=== PATIENT | male | born 2000 | race Hispanic/Latino ===

== ENCOUNTER 2025-07-13 02:47 | Observation (INO) | payer OTHER ==
[~2025-07-13] VITALS: Ht 172.7 cm; Wt 77.1 kg
[2025-07-13] VITALS (11 sets, daily range): BP systolic 100–120; BP diastolic 59–74; PULSE 59–80; RESP 16–20; TEMP 98.4–99.1; O2SAT 95–100
[2025-07-13 03:09] LABS: BASOPHILS % 0.7 % (0.0-1.0); EOSINOPHILS % 3.2 % (0.0-6.0); LYMPHOCYTES % 13.1 % (18.0-39.1); MONOCYTES % 6.6 % (4.4-11.3); NEUTROPHILS % 76.2 % (38.7-80.0); RED CELL DISTRIBUTION WIDTH 11.8 % (11.7-14.4)
[2025-07-13] MEDS: ONDANSETRON HCL INJ 2MG/ML 2ML 2 MG/ML VIAL IV STA ×2 (03:16→04:09)
[2025-07-13] MEDS: MAGNESIUM/ALUMINUM/SIMETHICONE 30 ML UDC PO STA (03:16)
[2025-07-13] MEDS: LIDOCAINE VISC 2% SOLN 15 ML UDC PO STA (03:17)
[2025-07-13] MEDS: BELLADONNA ALK/PHENOBARBITAL 5 ML UDC PO ONE (03:17)
[2025-07-13 03:34] LABS: EST GLOMERULAR FILTRATION RATE 115.0 ML/MIN (>=60)
[2025-07-13] MEDS ORDERED: Morphine 4mg INJECTION 4 MG/ML INJ IV PRN (04:00)
[2025-07-13] MEDS ORDERED: ONDANSETRON HCL INJ 2MG/ML 2ML 2 MG/ML VIAL IV PRN ×2 (04:00→15:45)
[2025-07-13] MEDS: SODIUM CHLORIDE 0.9% 1000ML 1,000 ML IV SCH (04:04)
[2025-07-13] MEDS: Morphine 4mg INJECTION 4 MG/ML INJ IV STA (04:09)
[2025-07-13] MEDS ORDERED: IOPAMIDOL 370 MG/ML 100 ML INFUS..BTL INJ ONE (05:45)
[2025-07-13] MEDS ORDERED: FENTANYL CITRATE/PF 100MCG/2 ML INJ ONE (10:43)
[2025-07-13] MEDS ORDERED: ROCURONIUM BROMIDE 1 ML IV ONE (10:43)
[2025-07-13] MEDS ORDERED: LIDOCAINE HCL 2% LOCAL INJ 5 ML SDV VIAL INJ ONE (10:43)
[2025-07-13] MEDS ORDERED: PROPOFOL IV EMULSION 10 MG/ML 20 ML VIAL ONE (10:44)
[2025-07-13] MEDS ORDERED: SUCCINYLCHOLINE CHLORIDE 20 MG/ML 10ML VIAL ONE ×2 (14:22→14:32)
[2025-07-13] MEDS ORDERED: MIDAZOLAM HCL 2 MG/2 ML VIAL ONE (14:30)
[2025-07-13] MEDS ORDERED: Morphine 10mg syringe 10 MG/ML INJ ONE (14:37)
[2025-07-13] MEDS ORDERED: ONDANSETRON HCL INJ 2MG/ML 2ML 2 MG/ML VIAL ONE (14:53)
[2025-07-13] MEDS ORDERED: DEXAMETHASONE SOD PHOS INJ 4 MG/ML SDV ONE (14:53)
[2025-07-13] MEDS ORDERED: METOCLOPRAMIDE HCL 10 MG/2ML VIAL ONE (14:53)
[2025-07-13] MEDS ORDERED: KETOROLAC TROMETHAMINE 30 MG/ML VIAL ONE (14:53)
[2025-07-13] MEDS ORDERED: SUGAMMADEX SODIUM 200 MG/2 ML VIAL IV ONE (14:57)
[2025-07-13] MEDS ORDERED: KETOROLAC TROMETHAMINE 30 MG/ML VIAL IV PRN (15:45)
[2025-07-13] MEDS ORDERED: HYDROCODONE/APAP 7.5MG-325MG 1 EA TAB PO PRN (15:45)
[2025-07-13] MEDS ORDERED: NO HOME MEDS (19:53)
[2025-07-14 05:08] LABS: BASOPHILS % 0.5 % (0.0-1.0); EOSINOPHILS % 0.8 % (0.0-6.0); LYMPHOCYTES % 15.1 % (18.0-39.1); MONOCYTES % 7.3 % (4.4-11.3); NEUTROPHILS % 76.0 % (38.7-80.0); RED CELL DISTRIBUTION WIDTH 11.9 % (11.7-14.4)
[2025-07-14 05:50] LABS: EST GLOMERULAR FILTRATION RATE 125.0 ML/MIN (>=60)
[2025-07-14 08:25] VITALS: BP 114/61; PULSE 59; RESP 20; TEMP 98.2; O2SAT 99
[2025-07-14 09:40] VITALS: BP 114/61; PULSE 59; RESP 20; TEMP 98.2; O2SAT 99
[2025-07-14 12:46] VITALS: BP 114/65; PULSE 85; RESP 19; TEMP 98.6; O2SAT 100
== END 2025-07-14 15:45 | disposition home or self-care (01) ==
LOC: ER 02:57 → INTOOBSV 03:52 → ERHOLD 03:52 → MED/SURG2 06:25
PROVIDERS: ADMIT Internal Medicine; ATTEND Internal Medicine
DX: K35.80 Unspecified acute appendicitis (principal)
CPT/HCPCS: 36415 ×2; 44970; 74177; 80053 ×2; 83690; 85025 ×2; 88304; 99284; C1766; G0378 ×2; J0330; J1100; J1885; J2003; J2250; J2270; J2405; J2470 ×2; J2543 ×2; J2704; J2765; J3010; J7030 ×2; Q9967